=== PATIENT | female | born 1960 | race Caucasian/White ===

== ENCOUNTER 2017-04-19 11:12 | Day surgery (SDC) | payer BC ==
[~2017-04-19 11:12] MED LIST: Acetaminophen/HYDROcodone 325-5 MG Tab PO PRN; Bupivacaine 0.25%/EPINEPHrine 1:200,000 10 ML SDV INJECT ONE; Bupivacaine 25%/EPINEPHrine/PF 30 ML ONE; Lactated Ringers 1,000 ML IV SCH; Lidocaine 2% 5 ML SDV ONE; Midazolam 1 MG/ML 2 ML SDV ONE; Neostigmine Methylsulfate 1 MG/ML 5 ML Syringe ONE; Ondansetron 4 MG/2 ML SDV ONE; Propofol 200 MG/20 ML SDV ONE; Rocuronium 10 MG/ML 10 ML Syringe ONE; ceFAZolin 2 GM in Premix Bag 1 BAG IV ONE; fentaNYL 100 MCG/2 ML SDV IVPUSH PRN; fentaNYL 100 MCG/2 ML SDV ONE
[2017-04-19] MEDS ORDERED: Bupivacaine 25%/EPINEPHrine/PF 30 ML ONE (11:51)
[2017-04-19] MEDS ORDERED: Triamcinolone Acetonide 40 MG/ML 1 ML MDV ONE (11:51)
--- NOTE | 2017-04-19 12:24 | PCM.PREANE ---
Preanesthetic Assessment - Anesthesia/Transfusion/Family Hx Anesthesia History: Prior Anesthesia Without Reaction Other Type of Anesthesia Reaction Comment: Denies any known problems Family History of Anesthesia Reaction: No Transfusion History: Prior Transfusion Without Reaction Intubation History: Unknown - Review of Systems General: No Symptoms Pulmonary: No Symptoms Cardiovascular: No Symptoms Gastrointestinal: No Symptoms Neurological: No Symptoms Other: Reports: None - Physical Assessment O2 Sat by Pulse Oximetry: 92 Respiratory Rate: 16 Vital Signs: Last Vital Signs Temp 36.8 C 04/19/17 12:05 Pulse 74 04/19/17 12:05 Resp 16 04/19/17 12:05 BP 135/87 04/19/17 12:05 Pulse Ox 92 L 04/19/17 12:05 Height: 1.57 m Weight: 95.254 kg ASA Class: 2 Mental Status: Alert & Oriented x3 Airway Class: Mallampati = 2 Dentition: Reports: Normal Dentition Thyro-Mental Finger Breadths: 3 Mouth Opening Finger Breadths: 3 ROM/Head Extension: Full Lungs: Clear to Auscultation, Normal Respiratory Effort Cardiovascular: Regular Rate, Regular Rhythm - Allergies Allergies/Adverse Reactions: Allergies Allergy/AdvReac Type Severity Reaction Status Date / Time acetaminophen [From Percocet] Allergy Swelling Verified 03/05/14 15:03 oxycodone HCl [From Percocet] Allergy Swelling Verified 03/05/14 15:03 Latex Allergy Itching Uncoded 03/05/14 15:03 Steri-strips Allergy Itching Uncoded 04/17/17 10:20 - Blood Blood Available: No - Anesthesia Plan Pre-Op Medication Ordered: None - Acknowledgements Anesthesia Type Planned: General Anesthesia Pt an Appropriate Candidate for the Planned Anesthesia: Yes Alternatives and Risks of Anesthesia Discussed w Pt/Guardian: Yes Pt/Guardian Understands and Agrees with Anesthesia Plan: Yes PreAnesthesia Questionnaire Gastrointestinal History: Reports: Colon Polyp Genitourinary History: Reports: None Musculoskeletal History: Reports: Back Pain, Chronic, Osteoarthritis, Other ( See Below) (chronic shoulder and neck pain) Psychiatric History: Reports: Anxiety, Depression Endocrine/Metabolic History: Reports: Obesity/BMI 30+ Hematologic History: Reports: Blood Transfusion(s) Dermatologic History: Reports: Other (See Below) (macromastia) - Past Surgical History Head Surgeries/Procedures: Reports: None GI Surgical History: Reports: Colonoscopy Female Surgical History: Reports: Hysterectomy Musculoskeletal Surgical History: Reports: Knee Replacement Other Musculoskeletal Surgeries/Procedures:: hx olga lidia foot surgery and olga lidia knee replacements - SUBSTANCE USE Smoking Status *Q: Never Smoker Days Per Week of Alcohol Use: 1 Recreational Drug Use History: No - HOME MEDS Home Medications: Home Meds Sertraline [Zoloft] 1 tab PO DAILY 03/05/14 [History] - CURRENT (IN HOUSE) MEDS Current Meds: Current Medications Hydrocodone Bitart/Acetaminophen (Victor 325-5 Mg) 1 tab PO Q4H PRN PRN Reason: Pain Fentanyl (Sublimaze) 50 mcg IVPUSH Q5M PRN PRN Reason: Pain (severe 7-10) Stop: 04/20/17 08:40 Lactated Ringer's (Ringers, Lactated) 1,000 mls @ 125 mls/hr IV ASDIRECTED [facility] Last Admin: 04/19/17 12:06 Dose: 125 mls/hr Discontinued Medications Bupivacaine HCl/Epinephrine Bitart (Marcaine 0.25%/Epinephrine 1:200,000) 30 ml INJECT ONETIME ONE Stop: 04/19/17 08:01 Fentanyl (Sublimaze) Confirm Administered Dose 300 mcg .ROUTE .STK-MED ONE Stop: 04/19/17 10:55 Glycopyrrolate () Confirm Administered Dose 1 mg .ROUTE .STK-MED ONE Stop: 04/19/17 10:55 Cefazolin Sodium/Dextrose 2 gm (/ Premix) 50 mls @ 100 mls/hr IV ONETIME ONE Stop: 04/18/17 17:48 Bupivacaine HCl/Epinephrine Bitart (Sensorc Mpf 0.25%-Epi 1:[id number]) Confirm Administered Dose 30 mls @ as directed .ROUTE .STK-MED ONE Stop: 04/19/17 07:24 Bupivacaine HCl/Epinephrine Bitart (Sensorc Mpf 0.25%-Epi 1:[id number]) Confirm Administered Dose 30 mls @ as directed .ROUTE .STK-MED ONE Stop: 04/19/17 11:52 Lidocaine (Xylocaine-Mpf 2%) Confirm Administered Dose 5 ml .ROUTE .STK-MED ONE Stop: 04/19/17 10:55 Midazolam HCl (Versed 1 Mg/Ml) Confirm Administered Dose 2 mg .ROUTE .STK-MED ONE Stop: 04/19/17 10:55 Neostigmine Methylsulfate (Neostigmine) Confirm Administered Dose 5 mg .ROUTE .STK-MED ONE Stop: 04/19/17 10:55 Ondansetron HCl (Zofran) Confirm Administered Dose 4 mg .ROUTE .STK-MED ONE Stop: 04/19/17 10:55 Propofol (Diprivan 20 Ml) Confirm Administered Dose 200 mg .ROUTE .STK-MED ONE Stop: 04/19/17 10:55 Rocuronium [place] (Zemuron) Confirm Administered Dose 100 mg .ROUTE .STK-MED ONE Stop: 04/19/17 10:55 Triamcinolone Acetonide (Kenalog-40) Confirm Administered Dose 40 mg .ROUTE .STK -MED ONE Stop: 04/19/17 11:52
[2017-04-19] MEDS ORDERED: Phenylephrine/Normal Saline 100 MCG/ML 10 ML Syringe ONE (13:30)
[2017-04-19] MEDS ORDERED: Dexamethasone 4 MG/ML 5 ML MDV ONE (14:14)
[2017-04-19] MEDS ORDERED: fentaNYL 100 MCG/2 ML SDV ONE ×2 (14:35→14:41)
[2017-04-19] MEDS ORDERED: HYDROmorphone 2 MG/ML Syringe ONE (15:23)
[2017-04-19] MEDS ORDERED: Octyl 2-Cyanoacrylate 1 Tube ONE ×2 (15:35→15:54)
[2017-04-19] MEDS ORDERED: Ketorolac 30 MG/ML SDV ONE (16:08)
--- NOTE | 2017-04-19 16:56 | PCM.POSTAN ---
POST ANESTHESIA ASSESSMENT - MENTAL STATUS Mental Status: Alert, Oriented - RESPIRATORY Respiratory Status: Respiratory Rate WNL, Airway Patent, O2 Saturation Stable - CARDIOVASCULAR CV Status: Pulse Rate WNL, Blood Pressure Stable - GASTROINTESTINAL GI Status: No Symptoms - PAIN Pain Score: 0 - POST OP HYDRATION Hydration Status: Adequate & Stable
--- NOTE | 2017-04-19 18:01 | PCM48HPAN ---
Post Anesthesia Note - EVALUATION WITHIN 48HRS OF ANESTHETIC Vital Signs in Normal Range: Yes Patient Participated in Evaluation: Yes Respiratory Function Stable: Yes Airway Patent: Yes Cardiovascular Function Stable: Yes Hydration Status Stable: Yes Pain Control Satisfactory: Yes Nausea and Vomiting Control Satisfactory: Yes Mental Status Recovered: Yes
[2017-04-19] MEDS ORDERED: Ondansetron 4 MG Tab PO PRN (18:15)
[2017-04-19] MEDS ORDERED: Sodium Chloride 0.9% 2.5 ML Syringe FLUSH PRN (19:20)
[2017-04-19] MEDS ORDERED: Sodium Chloride 0.9% 10 ML Syringe FLUSH PRN (19:20)
[2017-04-19] MEDS: Acetaminophen/HYDROcodone 325-5 MG Tab PO PRN (22:15)
[2017-04-20] MEDS: Acetaminophen/HYDROcodone 325-5 MG Tab PO PRN (04:19)
[2017-04-20 08:30] VITALS: BP 94/70
--- NOTE | 2017-04-20 15:35 | PCM.OPNOTE ---
- General Post-Op/Procedure Note Date of Surgery/Procedure: 04/19/17 Operative Procedure(s): bilateral breast reduction and right carpal tunnel release and injectionof the right thumb carpometacarpal joint with kenalog 40 ( 0.5cc). Pre Op Diagnosis: macromastia, right carpal tunnel syndrome and right cmc arthritis Post-Op Diagnosis: Same Anesthesia Technique: General ET Tube, Local Primary Surgeon: Krystle Johnson Automatic Machine Attendant: Litzy Cox Role of Automatic Machine Attendant: retraction., prepping and closure assistance Complications: None Condition: Good Free Text/Narrative:: Intake & Output 04/19/17 04/20/17 04/20/17 23:59 07:59 15:59 Intake Total 3200 1000 Output Total 1100 Balance 3200 -100
--- NOTE | 2017-04-20 21:51 | OR ---
SURGEON: KRYSTLE JOHNSON MD DATE OF PROCEDURE: 04/20/2017 PREOPERATIVE DIAGNOSES: 1. Macromastia. 2. Right carpal tunnel syndrome. 3. Right carpometacarpal arthritis. POSTOPERATIVE DIAGNOSES: 1. Macromastia. 2. Right carpal tunnel syndrome. 3. Right carpometacarpal arthritis. PROCEDURES PERFORMED: 1. Bilateral breast reduction. 2. Right carpal tunnel release. 3. Injection of the right thumb carpometacarpal joint with Kenalog 40, 0.5 mL. ANESTHESIA: General ET tube with local. PRIMARY SURGEON: Krystle Johnson MD. EXTRACTIONS TECHNICIAN: MAX Deng. REASON EXTRACTIONS TECHNICIAN WAS NECESSARY: For retraction, prepping, draping, and closure assistance. INDICATIONS: Ms. Kamara is a 57-year-old female seen today in evaluation for bilateral breast reduction. Risks and benefits of reduction mammoplasty were discussed with her and she was in agreement to proceed. Risks were including but not limited to bleeding, infection, damage to underlying or overlying structures, possible need for future interventions, possible scarring. PROCEDURE IN DETAIL: After informed consent was obtained and placed on the chart, the patient was brought to the operating theater and laid in supine position. After adequate general anesthetic was obtained, the area was prepped and draped and a time-out was completed to confirm side and site. Once adequately confirmed, attention was paid to the Gustafson pattern markings and an inferior pedicle was designed 9 cm thick at the base. Once adequately designed, attention was then paid to de-epithelialization and protection of the marked nipple-areolar complex. Once the inferior pedicle had been de- epithelialized, attention was then paid to the superior skin flaps. Dissection was carried 1 cm thick tapering to the chest wall medially and [address] to the chest wall laterally. Once adequately dissected, meticulous hemostasis was obtained and then attention was paid to the isolation of the inferior pedicle. The intervening breast tissue was easily removed and once adequately removed and weighed to be of appropriate weight, the area was copiously irrigated, meticulous hemostasis was obtained, and the skin was redraped over that inferior pedicle. Once adequately redraped and bilateral dissection was completed, attention was then paid to seating the patient up in the supine position and symmetry was appreciated. The nipple-areolar complexes were marked in their new position and then the patient was laid in the supine position and these were dissected out, taking care to staple the new nipple-areolar complex position in place. Once adequately positioned, attention was then paid to closure using deep 3-0 STRATAFIX sutures for the skin and a deep 3-0 STRATAFIX suture for the dermis and a running 4-0 STRATAFIX suture for the skin. Once this was completed, given the patient's allergy to Steri-Strips, she was dressed with Dermabond. Once this was completed and allowed to dry, attention was then paid to the right carpal tunnel. Attention was paid to the right carpal tunnel and the arm was prepped and draped in normal fashion using a separate sterile prep. Attention was then paid to time-out to again confirm side and site. Local anesthesia was infiltrated into the area and attention was paid to injection of the right CMC joint with 0.5 mL of Kenalog 40 for a total of 20 mg. This was mixed with 0.25% Marcaine and injected into the CMC joint without difficulty. Once adequately injected and the local had time to set on the carpal tunnel, a 15 blade was used to dissect through the skin and subcutaneous tissues with direct visualization using retraction. Once adequately dissected and the ligament was breached, dissection was carried distally and proximally under direct visualization until complete release of the ligament. A tourniquet was not opted for this case. Local anesthesia was allowed to infiltrate for a significant amount of time to assist with hemostasis. Direct visualization was easily obtained and the area was copiously irrigated and closed using a 5-0 nylon stitch in a horizontal mattress fashion. It was then dressed with Xeroform fluffs and a Kerlix gauze dressing and a 2-inch Keenan wrap. Once this was completed, the compression bra was placed over the fluffs on the breast incision. The patient was transferred to the PACU in stable condition. FOLLOWUP INSTRUCTIONS: The patient tolerated the procedure well. All counts and needles were correct at the end of the case, and she will be maintained in the hospital overnight for pain control. We will follow up with her tomorrow, sooner if any problems, questions, or concerns, and she was already written a script for [place] for discharge. HEGGTHE / KIMI /[id number]
== END 2017-04-20 08:25 | disposition home or self-care (01) ==
LOC: MW.SDS 11:12 → MW.ICU 16:31 → MW.SDS 04-20 08:25
PROVIDERS: ATTEND Plastic Surgery
DX: N62 Hypertrophy of breast (principal); G56.01 Carpal tunnel syndrome, right upper limb; M18.11 Unilateral primary osteoarthritis of first carpometacarpal joint, right hand; F41.9 Anxiety disorder, unspecified; F32.9 Major depressive disorder, single episode, unspecified; G89.29 Other chronic pain; M25.519 Pain in unspecified shoulder; M54.2 Cervicalgia; E66.9 Obesity, unspecified; Z68.38 Body mass index [BMI] 38.0-38.9, adult; Z86.010 Personal history of colon polyps; Z79.899 Other long term (current) drug therapy; Z88.5 Allergy status to narcotic agent; Z91.040 Latex allergy status; Z88.8 Allergy status to other drugs, medicaments and biological substances; Z96.653 Presence of artificial knee joint, bilateral; Z98.890 Other specified postprocedural states
CPT/HCPCS: 19318; 20600; 64721; A9270; J0690; J1100; J1170; J1885; J2250; J2405; J3010; J3301; J7120; 00402; 88304; J2704